=== PATIENT | female | born 1945 | race Caucasian/White ===

== ENCOUNTER → 2018-12-24 | Outpatient (CLI) | payer MEDICARE, OTHER ==
[~2018-12-24] MED LIST: ASCO-262 PO; CALC-823 PO; CHOL500050 PO; FERR-84 PO; GLUC-144 PO; LEVO25TA5 PO; MULT-35 PO; OMEG-160 PO
--- NOTE | 2018-12-24 12:49 | Diagnostic Imaging Report ---
Indication: Routine screening. Comparison is made with prior mammogram from 06/29/2016. 2-D and 3-D bilateral screening mammography was performed with CAD. Scattered fibroglandular densities are identified bilaterally. The parenchymal pattern is stable. No mass or malignant appearing microcalcifications are seen. The axillae are unremarkable. Impression: BI-RADS category one No mammographic features suspicious for malignancy are identified. ACR BI-RADS Category 1: Negative. Result letter will be mailed to the patient. Note: At least 10% of breast cancer is not imaged by mammography. Dictated by: Dictated on workstation # [id number]
== END ==
LOC: RAD 10:35
PROVIDERS: ATTEND Nurse Practitioner Family
DX: Z12.31 Encounter for screening mammogram for malignant neoplasm of breast (principal)
CPT/HCPCS: 77067

== ENCOUNTER → 2020-08-05 | Outpatient (CLI) | payer MEDICARE, OTHER ==
--- NOTE | 2020-08-05 14:37 | Diagnostic Imaging Report ---
EXAMINATION: CHEST (PA AND LATERAL) CLINICAL INDICATION: 75-year-old female, shortness of breath. COMPARISON: None. FINDINGS: Heart size and mediastinal contours are unremarkable. There is no identified pneumothorax. There is no pleural effusion. There is a large hiatal hernia. There is no identified focal airspace consolidation. There are mild disc degenerative changes of the thoracic spine. IMPRESSION: 1. No identified acute cardiopulmonary abnormality. 2. Large hiatal hernia. Dictated by: Dictated on workstation # [id number]
== END ==
LOC: RAD 13:08
PROVIDERS: ATTEND Nurse Practitioner Family
DX: K44.9 Diaphragmatic hernia without obstruction or gangrene (principal)
CPT/HCPCS: 71046

== ENCOUNTER → 2020-08-11 | Outpatient (CLI) | payer MEDICARE, OTHER | LOC: CARD 11:09 | PROVIDERS: ATTEND Nurse Practitioner Family | DX: R06.02 Shortness of breath (principal) | CPT/HCPCS: 93306 ==

== ENCOUNTER 2020-12-30 19:27 | Emergency (ER) | payer MEDICARE, OTHER ==
[~2020-12-30] VITALS: Ht 160 cm; Wt 68.2 kg
[2020-12-30] MEDS ORDERED: ANTACID SUSP 30 ML UDC (MYLANTA) PO ONE (19:45)
[2020-12-30] MEDS ORDERED: LIDOCAINE 2% VISCOUS 15 ML UDC PO ONE (19:45)
--- NOTE | 2020-12-30 19:45 | ED Abdominal Pain ---
General Stated Complaint: ABD PAIN Source of Information: Patient Exam Limitations: No Limitations History of Present Illness Date Seen by Provider: Dec 30, 2020 Time Seen by Provider: 19:42 Initial Comments To ER by her daughter with epigastric and left upper quadrant abdominal pain that began about an hour ago and is very intense. She has a known hiatal hernia for which she saw a surgeon in [place] today. Her attention was initially drawn to this by the shortness of breath that it was causing some time ago. She denies any nausea. States she feels the need to belch but is unable to do so. She was eating at a [employer] restaurant with her daughter at the time of onset of this pain though she had had no more than a few bites of rice. She is never had pain like this before with this hiatal hernia. Daughter gave her some milk of magnesia just before coming in though she has had no troubles with constipation. Last bowel movement yesterday she states. Timing/Duration: 1-2 Days Severity/Quality: Moderate Location: Epigastric Radiation: No Radiation Activities at Onset: None Associated Symptoms: Denies Symptoms Allergies and Home Medications Allergies Coded Allergies: No Known Drug Allergies (Unverified , 08/07/16) Home Medications Ascorbate Calcium 500 Mg Tablet, 500 MG PO DAILY, (Reported) Calcium Carbonate 500 Mg Tablet, 500 MG PO DAILY, (Reported) Cholecalciferol (Vitamin D3) 5,000 Unit Capsule, 5,000 UNIT PO DAILY, (Reported) Ferrous Sulfate 325 Mg Tablet, 325 MG PO DAILY, (Reported) Glucosamine HCl/Chondr Perea A Na 1 Each Tablet, 1 EACH PO DAILY, (Reported) Levothyroxine Sodium 25 Mcg Tablet, 25 MCG PO DAILY, (Reported) Multivitamin 1 Each Tablet, 1 EACH PO DAILY, (Reported) [place]-3/Dha/Epa/Fish Oil 1 Each Capsule, 1 EACH PO DAILY, (Reported) Patient Home Medication List Home Medication List Reviewed: Yes Review of Systems Review of Systems Constitutional: see HPI EENTM: No Symptoms Reported Respiratory: No Symptoms Reported Cardiovascular: No Symptoms Reported Gastrointestinal: See HPI, Abdominal Pain Genitourinary: No Symptoms Reported Musculoskeletal: no symptoms reported Skin: no symptoms reported Psychiatric/Neurological: No Symptoms Reported Endocrine: No Symptoms Reported Past Pxuyqfd-Relnyt-Iwvxuv Hx Patient Social History Recent Hopitalizations: No Immunizations Up To Date Date of Pneumonia Vaccine: Jun 03, 2015 Date of Influenza Vaccine: Jun 05, 2016 Seasonal Allergies Seasonal Allergies: No Past Medical History Tubal Ligation Reproductive Disorders: No Female Reproductive Disorders: Denies Sexually Transmitted Disease: No HIV/AIDS: No Arthritis Hypothyroidsim Physical Exam Vital Signs Vital Signs - First Documented 12/30/20 19:30 Temp 36.8 Pulse 69 Resp 18 B/P (MAP) 141/73 (95) Pulse Ox 98 O2 Delivery Room Air Capillary Refill : Height/Weight/BMI Height: 5'4.00" Weight: 147lbs. 0.0oz. 66.823841tv; 25.2 BMI Method: General Appearance: WD/WN, no apparent distress, other (Anxious appearing) HEENT: PERRL/EOMI, normal ENT inspection Respiratory: normal breath sounds, no respiratory distress, no accessory muscle use Cardiovascular: regular rate, rhythm, no murmur Gastrointestinal: normal bowel sounds, non tender, soft; No distended, No guarding, No rebound, No tenderness Extremities: normal range of motion, non-tender Neurologic/Psychiatric: alert, normal mood/affect, oriented x 3 Skin: normal color, warm/dry Progress/Results/Core Measures Results/Orders Lab Results Laboratory Tests Test 12/30/20 19:35 12/30/20 20:06 Range/Units White Blood Count 5.7 4.3-11.0 10^3/uL Red Blood Count 4.87 3.80-5.11 10^6/uL Hemoglobin 14.4 11.5-16.0 g/dL Hematocrit 44 35-52 % Mean Corpuscular Volume 90 80-99 fL Mean Corpuscular Hemoglobin 30 25-34 pg Mean Corpuscular Hemoglobin Concent 33 32-36 g/dL Red Cell Distribution Width 13.0 10.0-14.5 % Platelet Count 217 130-400 10^3/uL Mean Platelet Volume 10.7 9.0-12.2 fL Immature Granulocyte % (Auto) 0 % Neutrophils (%) (Auto) 49 42-75 % Lymphocytes (%) (Auto) 42 12-44 % Monocytes (%) (Auto) 6 0-12 % Eosinophils (%) (Auto) 2 0-10 % Basophils (%) (Auto) 1 0-10 % Neutrophils # (Auto) 2.8 1.8-7.8 10^3/uL Lymphocytes # (Auto) 2.4 1.0-4.0 10^3/uL Monocytes # (Auto) 0.4 0.0-1.0 10^3/uL Eosinophils # (Auto) 0.1 0.0-0.3 10^3/uL Basophils # (Auto) 0.1 0.0-0.1 10^3/uL Immature Granulocyte # (Auto) 0.0 0.0-0.1 10^3/uL Sodium Level 140 135-145 MMOL/L Potassium Level 3.7 3.6-5.0 MMOL/L Chloride Level 106 98-107 MMOL/L Carbon Dioxide Level 22 21-32 MMOL/L Anion Gap 12 5-14 MMOL/L Blood Urea Nitrogen 14 7-18 MG/DL Creatinine 0.94 0.60-1.30 MG/DL Estimat Glomerular Filtration Rate 58 BUN/Creatinine Ratio 15 Glucose Level 178 H 70-105 MG/DL Calcium Level 9.3 8.5-10.1 MG/DL Corrected Calcium 8.9 8.5-10.1 MG/DL Total Bilirubin 0.5 0.1-1.0 MG/DL Aspartate Amino Transf (AST/SGOT) 22 5-34 U/L Alanine Aminotransferase (ALT/SGPT) 18 0-55 U/L Alkaline Phosphatase 68 40-136 U/L Troponin I < 0.028 <0.028 NG/ML Total Protein 7.5 6.4-8.2 GM/DL Albumin 4.5 3.2-4.5 GM/DL Lipase 37 8-78 U/L My Orders Orders - AI RANDOLPH APRN Cbc With Automated Diff (12/30/20 19:32) Comprehensive Metabolic Panel (12/30/20 19:32) Ua Culture If Indicated (12/30/20 19:32) Lipase (12/30/20 19:32) Ed Iv/Invasive Line Start (12/30/20 19:32) Antacid Suspension (Mylanta Suspension (12/30/20 19:45) Lidocaine 2% Viscous 15 Ml (Xylocaine Vi (12/30/20 19:45) Troponin I (12/30/20 19:41) Ekg Tracing (12/30/20 19:41) Chest 1 View, Ap/Pa Only (12/30/20 19:41) Medications Given in ED Current Medications Medications Dose Ordered Sig/[place] Route Start Time Stop Time Status Last Admin Dose Admin Al Hydrox/Mg Hydrox/Simethicone 30 ml ONCE ONCE PO 12/30/20 19:45 12/30/20 19:46 DC 12/30/20 19:45 30 ML Lidocaine HCl 15 ml ONCE ONCE PO 12/30/20 19:45 12/30/20 19:46 DC 12/30/20 19:45 15 ML Vital Signs/I&O 12/30/20 19:30 Temp 36.8 Pulse 69 Resp 18 B/P (MAP) 141/73 (95) Pulse Ox 98 O2 Delivery Room Air Diagnostic Imaging Diagonstic Imaging: Xray Comments NAME: REGINA GARCIA [facility] REC#: [id number] PT STATUS: REG ER : 1945 PHYSICIAN: AI RANDOLPH APRN ADMIT DATE: 12/30/20/ER Draft Date of Exam:12/30/20 CHEST 1 VIEW, AP/PA ONLY INDICATION: Epigastric pain. Compared 08/05/2020 FINDINGS: There is a large retrocardiac hernia, stable from prior. The heart size itself stable and normal. There is no vascular congestion. No edema, pneumonia, effusion or pneumothorax. IMPRESSION: No acute appearing abnormality Dictated on workstation # [id number] Dict: 12/30/201958 Trans: 12/30/202003 DEL [id number] Interpreted by: ROGER MENESES Electronically signed by: Departure Communication (Admissions) 2016-completely pain-free after GI cocktail. We will discharged home. Advised her to use Maalox if this is a recurrent problem. Impression Primary Impression: Hiatal hernia Disposition: HOME, SELF-CARE Condition: Stable Departure-Patient Inst. Decision time for Depature: 20:18 Referrals: FÁTIMA MEEKS MD (PCP/Family) Primary Care Physician Patient Instructions: Hiatal Hernia (DC) Add. Discharge Instructions: 1. Return to ER for any concerns. You can use Maalox if this is a recurrent problem for you. Take the Maalox whenever the pain starts again. Follow-up with your quality assurance lead and surgeon as scheduled. Copy Copies To 1: FÁTIMA MEEKS MD, PETER J APRN Dec 30, 2020 19:44
[2020-12-30 19:49] LABS: BASOPHILS # (AUTO) 0.1 10^3/uL (0.0-0.1); BASOPHILS % (AUTO) 1 % (0-10); EOSINOPHILS # (AUTO) 0.1 10^3/uL (0.0-0.3); EOSINOPHILS % (AUTO) 2 % (0-10); HEMATOCRIT 44 % (35-52); HEMOGLOBIN 14.4 g/dL (11.5-16.0); LYMPHOCYTES # (AUTO) 2.4 10^3/uL (1.0-4.0); LYMPHOCYTES % (AUTO) 42 % (12-44); MEAN CORPUSCULAR HEMOGLOBIN 30 pg (25-34); MEAN CORPUSCULAR HGB CONC 33 g/dL (32-36); MEAN CORPUSCULAR VOLUME 90 fL (80-99); MEAN PLATELET VOLUME 10.7 fL (9.0-12.2); MONOCYTES # (AUTO) 0.4 10^3/uL (0.0-1.0); MONOCYTES % (AUTO) 6 % (0-12); NEUTROPHILS # (AUTO) 2.8 10^3/uL (1.8-7.8); NEUTROPHILS % (AUTO) 49 % (42-75); PLATELET COUNT 217 10^3/uL (130-400); WHITE BLOOD COUNT 5.7 10^3/uL (4.3-11.0)
--- NOTE | 2020-12-30 20:04 | Diagnostic Imaging Report ---
INDICATION: Epigastric pain. Compared 08/05/2020 FINDINGS: There is a large retrocardiac hernia, stable from prior. The heart size itself stable and normal. There is no vascular congestion. No edema, pneumonia, effusion or pneumothorax. IMPRESSION: No acute appearing abnormality Dictated by: Dictated on workstation # [id number]
[2020-12-30 20:09] LABS: ALANINE AMINOTRANSFERASE 18 U/L (0-55); ALBUMIN 4.5 GM/DL (3.2-4.5); ALKALINE PHOSPHATASE 68 U/L (40-136); BILIRUBIN,TOTAL 0.5 MG/DL (0.1-1.0); BUN/CREATININE RATIO 15; CALCIUM 9.3 MG/DL (8.5-10.1); CARBON DIOXIDE 22 MMOL/L (21-32); CHLORIDE 106 MMOL/L (98-107); CREATININE SERUM 0.94 MG/DL (0.60-1.30); GFR ESTIMATED 58; GLUCOSE 178 MG/DL (70-105); LIPASE 37 U/L (8-78); POTASSIUM 3.7 MMOL/L (3.6-5.0); SODIUM 140 MMOL/L (135-145); TOTAL PROTEIN 7.5 GM/DL (6.4-8.2)
[2020-12-30 20:14] LABS: BILIRUBIN,URINE NEGATIVE (NEGATIVE); CLARITY,URINE CLEAR; COLOR,URINE YELLOW; GLUCOSE, URINE (UA) NEGATIVE (NEGATIVE); KETONES,URINE NEGATIVE (NEGATIVE); LEUKOCYTE ESTERASE ,URINE 1+ (NEGATIVE); NITRITE,URINE NEGATIVE (NEGATIVE); PROTEIN,URINE NEGATIVE (NEGATIVE)
[2020-12-30 20:23] LABS: AMORPHOUS SEDIMENT,UR RARE AMOR URATES /LPF; BACTERIA,URINE TRACE /HPF; WBC,URINE 0-2 /HPF
[2020-12-30 20:24] VITALS: BP 114/71
== END 2020-12-30 20:28 | disposition home or self-care (01) ==
LOC: EDUNIT# 19:27 → ER 19:28
DX: K44.9 Diaphragmatic hernia without obstruction or gangrene (principal); E03.9 Hypothyroidism, unspecified; Z79.890 Hormone replacement therapy
CPT/HCPCS: 36415; 71045; 80053; 81000; 83690; 84484; 85025; 93005

== ENCOUNTER → 2022-08-04 | Outpatient (CLI) | payer MEDICARE, OTHER ==
--- NOTE | 2022-08-04 14:46 | Diagnostic Imaging Report ---
Exam: Ultrasound thyroid. Date: August 04, 2022. Comparison: Thyroid ultrasound August 12, 2015. Indication: 77-year-old female, hypothyroidism. Findings: Two-dimensional grayscale and color Doppler images were obtained of the thyroid. Right lobe of the thyroid: The right lobe of the thyroid is diffusely hypervascular. The right lobe of the thyroid measures 4.7 x 2.4 x 2.2 cm. Left lobe of the thyroid: The left lobe of the thyroid is diffusely hypervascular.The left lobe of the thyroid measures 4.6 x 2.1 x 1.9 cm. Isthmus: There is a hypoechoic nodule in the region of the thyroid isthmus measuring 8 x 6 x 4 mm in size.The isthmus measures 0.3 cm. Impression: 1. Diffusely increased thyroid vascularity which may reflect thyroiditis. 2. No dominant or suspicious thyroid nodule. Dictated by: Dictated on workstation # [id number]
== END ==
LOC: RAD 12:47
PROVIDERS: ATTEND Internal Medicine Endocrinology, Diabetes & Metabolism
DX: E06.9 Thyroiditis, unspecified (principal)
CPT/HCPCS: 36415; 76536; 84443